=== PATIENT | male | born 1960 | race Two or more races ===

== ENCOUNTER 2024-06-03 20:25 | Emergency (ER) | payer OTHER ==
[~2024-06-03] VITALS: Ht 182.9 cm; Wt 120.2 kg
[2024-06-03] MEDS ORDERED: SIMVASTATIN5 MG PO (20:38)
[2024-06-03] MEDS ORDERED: TAMS0.4C PO (20:39)
[2024-06-03] MEDS ORDERED: HYZAAR 100-251 EACH PO (20:39)
[2024-06-03] MEDS ORDERED: FAMOTIDINE/PF 20 MG/2 ML VIAL ONE (21:09)
[2024-06-03] MEDS ORDERED: ONDANSETRON HCL 2 MG/ML VIAL ONE (21:09)
[2024-06-03] MEDS ORDERED: HYOSCYAMINE SULFATE 0.125 MG TAB.SUBL ONE (21:10)
[2024-06-03] MEDS ORDERED: HYOSCYAMINE SULFATE 0.125 MG TAB.SUBL SL ONE (21:15)
[2024-06-03] MEDS ORDERED: FAMOTIDINE/PF 20 MG/2 ML VIAL IV ONE (21:15)
[2024-06-03] MEDS ORDERED: ONDANSETRON HCL 2 MG/ML VIAL IV ONE (21:15)
[2024-06-03 21:42] LABS: HEMATOCRIT 44.2 % (39.0-48.0); HEMOGLOBIN 15.7 g/dL (13-16.00); MEAN CELL VOLUME 91.5 fL (80.0-100.00); MEAN CORPUSCULAR HEMOGLOBIN 32.5 pg (27.00-32.0); MEAN CORPUSCULAR HGB CONC 35.5 g/dl (32.0-36.0); PLATELET COUNT 228 K/uL (150-450); RED BLOOD COUNT 4.83 M/uL (4.00-6.00); RED CELL DISTRIBUTION WIDTH 13.2 % (11.5-14.5)
[2024-06-03 22:19] LABS: ALBUMIN 3.3 gm/dL (3.4-5.0); BILIRUBIN TOTAL 1.11 mg/dL (0.3-1.2); CALCIUM 8.8 mg/dL (8.5-10.1); CREATININE SERUM 1.29 mg/dL (0.70-1.30); GFR 56.44; GLOBULINA 4.1 G/DL (2.4-3.5); POTASSIUM 3.43 mEq/L (3.5-5.1); TOTAL PROTEIN 7.4 gm/dL (6.4-8.2)
== END 2024-06-03 23:18 | disposition home or self-care (01) ==
LOC: ER 20:27
PROVIDERS: General Practice
DX: K29.70 Gastritis, unspecified, without bleeding (principal)